=== PATIENT | female | born 1950 | race American Indian/Alaskan Native ===

== ENCOUNTER 2017-04-21 10:40 | Emergency (ER) | payer BC, MEDICARE ==
--- NOTE | 2017-04-21 12:23 | XRay Report ---
RIGHT ANKLE, 3 views: History: right ankle pain. Findings: Mild soft tissue swelling is identified. No acute osseous abnormality or joint pathology is identified. The fifth metatarsal base is intact. Impression: Soft tissue swelling. No acute osseous injury.
--- NOTE | 2017-04-21 14:42 | XRay Report ---
RIGHT FOOT, 3 views: History: Right foot pain. Mild osteopenia is suspected. Bony alignment is normal. No soft tissue abnormalities are seen. The joint spaces appear preserved. Small plantar spur. IMPRESSION: No evidence for acute injury. Mild osteopenia. Small plantar spur.
--- NOTE | 2017-04-21 14:48 | Emergency Department Report ---
HPI - General Chief Complaint: Extremity Injury, Lower Time Seen by Provider: 04/21/17 14:27 - HPI HPI: 66-year-old female presents to the emergency department with complaint of right midfoot pain is been going on for the past since she fell from a ladder. The patient says that she fell from about 4 feet up and on [address] way down she got her foot caught up in the ladder and a nearby table. She denies falling down or hitting her head. The pain is worsened over the past 2 or 3 days and is kept her from getting any sleep. She is able to bear some weight on the foot but after a few steps it appears to get more painful and harder to ambulate. She tried using some Epson salt and some BenGay without any relief. She has a past medical history of hypertension and hyperthyroidism. She presents with some elevated blood pressure but admits that she did not take her blood pressure medication today. ED Past Medical Hx - Past Medical History Hx Hypertension: Yes Hx Congestive Heart Failure: No Hx Diabetes: No Hx Asthma: No Hx COPD: No Additional medical history: HYPERTHYROID. HARD OF HEARING--WEARS HEARING AIDS - Surgical History Hx Appendectomy: Yes Additional Surgical History: HYSTERECTOMY. BLADDER TACK - Social History Smoking Status: Never Smoker Substance Use Type: None - Medications Home Medications: Home Medications Medication Instructions Recorded Confirmed Last Taken Type Amlodipine Bes/Olmesartan Med 10 - 40 mg PO DAILY #30 tablet 05/04/14 Unknown Rx [Azalea 10-40 mg] Aspirin EC [Aspirin Enteric Coated 81 mg PO QDAY #30 tablet 05/04/14 Unknown Rx TAB] Methimazole [Tapazole] 20 mg PO Q24HR #30 tablet 05/04/14 Unknown Rx Pantoprazole [Protonix TAB] 20 mg PO BID #60 tablet. 05/04/14 Unknown Rx Propranolol LA [Inderal LA] 160 mg PO QDAY #30 capsule 05/04/14 Unknown Rx traMADol [Ultram] 50 mg PO Q6HR PRN #20 tablet 09/04/15 Unknown Rx Nitrofurantoin [place]/M-Cryst 100 mg PO Q12HR #10 capsule 12/08/15 Unknown Rx [Macrobid CAP] Ondansetron [Zofran Odt] 4 mg PO Q8HR PRN #20 tab.rapdis 12/08/15 Unknown Rx HYDROcodone/APAP 5-325 [[place] 1 each PO Q6HR PRN #10 tablet 04/21/17 Unknown Rx 5-325 mg TAB] Ibuprofen [Motrin 800 MG tab] 800 mg PO Q8HR PRN #20 tablet 04/21/17 Unknown Rx Ondansetron [Zofran Odt] 4 mg PO Q8H PRN #10 tab.rapdis 04/21/17 Unknown Rx ED Review of Systems ROS: Stated complaint: FOOT PAIN Other details as noted in HPI Comment: All other systems reviewed and negative Constitutional: denies: chills, fever Eyes: denies: eye pain, eye discharge, vision change ENT: denies: ear pain, throat pain Respiratory: denies: cough, shortness of breath, wheezing Cardiovascular: denies: chest pain, palpitations Gastrointestinal: denies: abdominal pain, nausea, diarrhea Genitourinary: denies: urgency, dysuria, discharge Musculoskeletal: arthralgia. denies: back pain Skin: denies: rash, lesions Neurological: denies: headache, weakness, paresthesias Physical Exam - Physical Exam Vital Signs: Vital Signs 04/21/17 11:11 Temperature 98.8 F Pulse Rate 89 Respiratory 16 Rate Blood Pressure 177/68 O2 Sat by Pulse 100 Oximetry Physical Exam: GENERAL: The patient is well-developed well-nourished. HENT: Normocephalic. Atraumatic. Patient has moist mucous membranes. EYES: Extraocular motions are intact. NECK: Supple. No meningitic signs are noted. There is no adenopathy noted. CHEST/LUNGS: Clear to auscultation. There is no respiratory distress noted. HEART/CARDIOVASCULAR: Regular. There is no tachycardia. There is no murmur. ABDOMEN: Abdomen is soft, nontender. SKIN: Skin is warm and dry. There is no visible rash or appreciable swelling to the affected right foot. NEURO: The patient is awake, alert, and oriented. The patient is cooperative. The patient has no focal neurologic deficits. The patient has normal speech and gait. MUSCULOSKELETAL: There is some tenderness palpation to the circumferential right midfoot. There is no limitation range of motion. ED Course Vital Signs 04/21/17 11:11 Temperature 98.8 F Pulse Rate 89 Respiratory 16 Rate Blood Pressure 177/68 O2 Sat by Pulse 100 Oximetry ED Medical Decision Making - Radiology Data Radiology results: image reviewed interpreted by me: X-ray of the right foot and ankle does not show any fracture, dislocation or any acute process. - Medical Decision Making Patient complains mostly of circumferential right midfoot pain. X-ray does not show any fracture or dislocation. She will be placed on crutches and given a splint. She will be given referrals for podiatry and orthopedist. She'll be sent home with some pain medication. She will return to the ER with any worsening of her symptoms or any acute distress. - Differential Diagnosis fracture, dislocation, tendinitis, ligamentous injury Critical Care Time: No Critical care attestation.: If time is entered above; I have spent that time in minutes in the direct care of this critically ill patient, excluding procedure time. ED Disposition Clinical Impression: Right foot pain Hypertension Qualifiers: Hypertension type: essential hypertension Qualified Code(s): I10 - Essential ( primary) hypertension Fall from ladder Qualifiers: Encounter type: initial encounter Qualified Code(s): W11.XXXA - Fall on and from ladder, initial encounter Disposition: TO HOME OR SELFCARE Is pt being admited?: No Condition: Stable Instructions: Hypertension (ED), Arthralgia (ED) Additional Instructions: Please follow up with either a director private or orthopedist regarding your foot pain. Return to the emergency Department with any worsening of your symptoms or any acute distress. You have been prescribed a medication that is sedating and therefore should not be taken prior to driving, working, and responsible for children and in no way should be mixed with alcohol of any quantity. Please try and stay away from foods that are high in salt and caffeinated products to help with your blood pressure. Keep a blood pressure log. Take your blood pressure medications when you return home. Prescriptions: HYDROcodone/APAP 5-325 [[place] 5-325 mg TAB] 1 each PO Q6HR PRN #10 tablet PRN Reason: Pain Ibuprofen [Motrin 800 MG tab] 800 mg PO Q8HR PRN #20 tablet PRN Reason: Pain Ondansetron [Zofran Odt] 4 mg PO Q8H PRN #10 tab.rapdis PRN Reason: Nausea Referrals: SARIKA PALUMBO MD [Staff Physician] - 3-5 Days LOREE PALMER MD [Staff Physician] - 3-5 Days Time of Disposition: 14:50
[2017-04-21 15:07] VITALS: BP 171/63
== END 2017-04-21 15:10 | disposition home or self-care (01) ==
LOC: ED 10:40
DX: M79.671 Pain in right foot (principal); I10 Essential (primary) hypertension; E05.90 Thyrotoxicosis, unspecified without thyrotoxic crisis or storm; Z90.49 Acquired absence of other specified parts of digestive tract; Z90.710 Acquired absence of both cervix and uterus; Z88.8 Allergy status to other drugs, medicaments and biological substances; W11.XXXA Fall on and from ladder, initial encounter; Y93.89 Activity, other specified; Y99.8 Other external cause status; Y92.89 Other specified places as the place of occurrence of the external cause

== ENCOUNTER 2021-08-28 11:12 | Emergency (ER) | payer MEDICARE ==
[2021-08-28 12:27] LABS: Basophils % (Auto) 0.6 % (0.0-1.8); Eosinophils % (Auto) 0.1 % (0.0-4.3); Hematocrit 37.5 % (30.3-42.9); Hemoglobin 12.2 gm/dl (10.1-14.3); Lymphocytes # (Auto) 0.8 K/mm3 (1.2-5.4); Lymphocytes % (Auto) 17.7 % (13.4-35.0); Mean Corpuscular HGB Conc 33 % (30-34); Mean Corpuscular Volume 98 fl (79-97); Monocytes # (Auto) 0.2 K/mm3 (0.0-0.8); Monocytes % (Auto) 5.6 % (0.0-7.3); Platelet Count 272 K/mm3 (140-440); Red Blood Count 3.84 M/mm3 (3.65-5.03); Red Cell Distribution Width 16.4 % (13.2-15.2)
[2021-08-28 12:43] LABS: Alanine Aminotransferase 12 units/L (7-56); Albumin 4.4 g/dL (3.9-5); Blood Urea Nitrogen 10 mg/dL (7-17); Calcium 9.6 mg/dL (8.4-10.2); Hemolysis Index 7
[2021-08-28 12:49] LABS: BUN/Creatinine Ratio 14
--- NOTE | 2021-08-28 14:34 | XRay Report ---
CHEST 2 VIEWS INDICATION / CLINICAL INFORMATION: Cough. COMPARISON: None available. FINDINGS: SUPPORT DEVICES: None. HEART / MEDIASTINUM: The heart size and pulmonary vasculature are normal. LUNGS / PLEURA: No significant pulmonary or pleural abnormality. No pneumothorax. ADDITIONAL FINDINGS: No significant additional findings. IMPRESSION: No acute findings. Signer Name: Ezequiel Roger MD Signed: 08/28/2021 2:29 PM Workstation Name: [id number]
[2021-08-29] MEDS ORDERED: LIDOCAINE-MPF (1%) 10 MG/1 ML VIAL 5 ML INFILTRATI ONE (00:02)
[2021-08-29] MEDS ORDERED: IBUPROFEN 800 MG TAB PO ONE (00:03)
[2021-08-29] MEDS ORDERED: WATER FOR INJ Sterile (PF) 10 ML ONE (00:34)
[2021-08-29 00:38] VITALS: BP 162/75
--- NOTE | 2021-08-29 00:55 | Emergency Department Report ---
ED General Adult HPI - General Chief complaint: Upper Respiratory Infection Stated complaint: FATIGUE, COUTHING, SORE THROAT Time Seen by Provider: 08/28/21 23:51 Source: patient Mode of arrival: Ambulatory Limitations: No Limitations - History of Present Illness Initial comments: pt reports h/a, fatigue, sore throat, productive cough and nasal congestion x2 wks. pt reports she took a home covid test last week that resulted negative. No distress noted in triage. pt denies chest pain. + SOB with exertion x2 wks. -: Gradual, week(s) Location: mouth, chest Severity scale (0 -10): 0 Consistency: constant Improves with: none Worsens with: none Associated Symptoms: cough, headaches, nausea/vomiting - Related Data Previous Rx's Medication Instructions Recorded Last Taken Type Amlodipine Bes/Olmesartan Med 10 - 40 mg PO DAILY #30 tablet 05/04/14 Unknown Rx [Azalea 10-40 mg] Aspirin EC [Halfprin EC] 81 mg PO QDAY #30 tablet 05/04/14 Unknown Rx Pantoprazole [Protonix TAB] 20 mg PO BID #60 tablet. 05/04/14 Unknown Rx Propranolol LA [Inderal LA] 160 mg PO QDAY #30 capsule 05/04/14 Unknown Rx methIMAzole [Tapazole] 20 mg PO Q24HR #30 tablet 05/04/14 Unknown Rx traMADoL [Ultram] 50 mg PO Q6HR PRN #20 tablet 09/04/15 Unknown Rx Nitrofurantoin [place]/M-Cryst 100 mg PO Q12HR #10 capsule 12/08/15 Unknown Rx [Macrobid CAP] Ondansetron [Zofran Odt] 4 mg PO Q8HR PRN #20 tab.rapdis 12/08/15 Unknown Rx HYDROcodone/APAP 5-325 [[place] 1 each PO Q6HR PRN #10 tablet 04/21/17 Unknown Rx 5-325 mg TAB] Ibuprofen [Motrin 800 MG tab] 800 mg PO Q8HR PRN #20 tablet 04/21/17 Unknown Rx Ondansetron [Zofran Odt] 4 mg PO Q8H PRN #10 tab.rapdis 04/21/17 Unknown Rx Azithromycin [Zithromax Z-PANFILO] 250 mg PO DAILY #6 08/29/21 Unknown Rx Brompheniramine/Pseudoephed/Dm 5 ml PO Q6HR PRN #120 syrup 08/29/21 Unknown Rx [Bromfed Dm Cough Syrup] Allergies Allergy/AdvReac Type Severity Reaction Status Date / Time ropinirole HCl [From Requip] Allergy Unknown Verified 04/29/14 22:17 ED Review of Systems ROS: Stated complaint: FATIGUE, COUTHING, SORE THROAT Other details as noted in HPI Constitutional: denies: chills, fever Eyes: denies: eye pain, eye discharge, vision change ENT: denies: ear pain, throat pain Respiratory: denies: cough, shortness of breath, wheezing Cardiovascular: denies: chest pain, palpitations Endocrine: no symptoms reported Gastrointestinal: denies: abdominal pain, nausea, diarrhea Genitourinary: denies: urgency, dysuria, discharge Musculoskeletal: denies: back pain, joint swelling, arthralgia Skin: denies: rash, lesions Neurological: denies: headache, weakness, paresthesias Psychiatric: denies: anxiety, depression Hematological/Lymphatic: denies: easy bleeding, easy bruising ED Past Medical Hx - Past Medical History Hx Hypertension: Yes Hx Congestive Heart Failure: No Hx Diabetes: No Hx Asthma: No Hx COPD: No Additional medical history: HYpoTHYROID. HARD OF HEARING--WEARS HEARING AIDS, problems with memory, candidiasis of the esophagus ( eosinophilic esophagitis) hypomagnesemia, iron deficiency anemia, chronic back pain - Surgical History Hx Appendectomy: Yes Additional Surgical History: HYSTERECTOMY. BLADDER TACK - Social History Smoking Status: Never Smoker - Medications Home Medications: Home Medications Medication Instructions Recorded Confirmed Last Taken Type Amlodipine Bes/Olmesartan Med 10 - 40 mg PO DAILY #30 tablet 05/04/14 Unknown Rx [Azalea 10-40 mg] Aspirin EC [Halfprin EC] 81 mg PO QDAY #30 tablet 05/04/14 Unknown Rx Pantoprazole [Protonix TAB] 20 mg PO BID #60 tablet. 05/04/14 Unknown Rx Propranolol LA [Inderal LA] 160 mg PO QDAY #30 capsule 05/04/14 Unknown Rx methIMAzole [Tapazole] 20 mg PO Q24HR #30 tablet 05/04/14 Unknown Rx traMADoL [Ultram] 50 mg PO Q6HR PRN #20 tablet 09/04/15 Unknown Rx Nitrofurantoin [place]/M-Cryst 100 mg PO Q12HR #10 capsule 12/08/15 Unknown Rx [Macrobid CAP] Ondansetron [Zofran Odt] 4 mg PO Q8HR PRN #20 tab.rapdis 12/08/15 Unknown Rx HYDROcodone/APAP 5-325 [[place] 1 each PO Q6HR PRN #10 tablet 04/21/17 Unknown Rx 5-325 mg TAB] Ibuprofen [Motrin 800 MG tab] 800 mg PO Q8HR PRN #20 tablet 04/21/17 Unknown Rx Ondansetron [Zofran Odt] 4 mg PO Q8H PRN #10 tab.rapdis 04/21/17 Unknown Rx Azithromycin [Zithromax Z-PANFILO] 250 mg PO DAILY #6 08/29/21 Unknown Rx Brompheniramine/Pseudoephed/Dm 5 ml PO Q6HR PRN #120 syrup 08/29/21 Unknown Rx [Bromfed Dm Cough Syrup] ED Physical Exam - General Limitations: No Limitations General appearance: alert, in no apparent distress - Head Head exam: Present: atraumatic, normocephalic - Eye Eye exam: Present: normal appearance - ENT ENT exam: Present: mucous membranes moist - Neck Neck exam: Present: normal inspection - Respiratory Respiratory exam: Present: normal lung sounds bilaterally. Absent: respiratory distress - Cardiovascular Cardiovascular Exam: Present: regular rate, normal rhythm. Absent: systolic murmur, diastolic murmur, rubs, gallop - GI/Abdominal GI/Abdominal exam: Present: soft, normal bowel sounds - Extremities Exam Extremities exam: Present: normal inspection - Back Exam Back exam: Present: normal inspection - Neurological Exam Neurological exam: Present: alert, oriented X3 - Psychiatric Psychiatric exam: Present: normal affect, normal mood - Skin Skin exam: Present: warm, dry, intact, normal color. Absent: rash ED Course Vital Signs 08/28/21 08/28/21 08/28/21 11:44 22:30 22:46 Temperature 98.8 F Pulse Rate 90 Respiratory 18 Rate Blood Pressure 207/103 173/83 O2 Sat by Pulse 100 100 100 Oximetry 08/28/21 08/28/21 08/28/21 23:00 23:16 23:30 Temperature Pulse Rate 66 65 75 Respiratory 17 10 L 12 Rate Blood Pressure 166/82 173/83 156/76 O2 Sat by Pulse 100 100 100 Oximetry 08/28/21 08/29/21 08/29/21 23:46 00:00 00:16 Temperature Pulse Rate 67 61 62 Respiratory 13 11 L 9 L Rate Blood Pressure 156/76 158/79 158/79 O2 Sat by Pulse 100 100 100 Oximetry 08/29/21 00:30 Temperature Pulse Rate 63 Respiratory 12 Rate Blood Pressure 162/75 O2 Sat by Pulse 100 Oximetry ED Medical Decision Making - Lab Data Result diagrams: 08/28/21 12:01 08/28/21 12:01 - Radiology Data Radiology results: report reviewed, image reviewed - Medical Decision Making vss no distress o2 100 on RA x ray clear Critical care attestation.: If time is entered above; I have spent that time in minutes in the direct care of this critically ill patient, excluding procedure time. ED Disposition Clinical Impression: URI (upper respiratory infection), Pharyngitis Disposition: 01 HOME / SELF CARE / HOMELESS Is pt being admited?: No Does the pt Need Aspirin: No Condition: Stable Instructions: Viral Respiratory Infection, [id number], Cough, Adult
== END 2021-08-29 01:46 | disposition home or self-care (01) ==
LOC: ED 11:12
DX: J06.9 Acute upper respiratory infection, unspecified (principal); J02.9 Acute pharyngitis, unspecified; I10 Essential (primary) hypertension; E03.9 Hypothyroidism, unspecified; D50.9 Iron deficiency anemia, unspecified; Z90.710 Acquired absence of both cervix and uterus; Z98.890 Other specified postprocedural states; Z88.8 Allergy status to other drugs, medicaments and biological substances
CPT/HCPCS: 36415; 71046; 80053; 85025; 96372; 99283; J0696